=== PATIENT | female | born 1960 | race Caucasian/White ===

== ENCOUNTER 2021-10-03 12:38 | Emergency (ER) | payer OTHER, SELFPAY ==
--- OUTSIDE RECORDS SUMMARY | 2021-10-03 12:42 | XMS REPORT | Continuity of Care Document ---
:1960 Author Organization [facility] t Address [address] [place] [address] [address]. [address] [place] [address] Care Team Providers Name Role Phone Collins Arrington MD Attending Clinician GARTH ARRINGTON Attending Clinician Unavailable Bonita Henning MD Attending Clinician Fritz Patel MD Attending Clinician Payers Payer Name Policy Type Policy Number Effective Date Expiration Date S ource Problems Condition Condition Condition Status Onset Resolution Last Treating Co mments Source Name Details Category Date Date Treatment Clinician Date Senile Senile Disease Active [facility] osteoporos osteoporos 05-13 Co llege is is 00:00: of 00 Medicin e Allergies, Adverse Reactions, Alerts Allergy Allergy Status Severity Reaction(s) Onset Inactive Treating Comm ents Source Name Type Date Date Clinician Buspiron Propensi Active 2019-05 [facility] e Hcl ty to 05-17 [place] adverse 00:00: of reaction 00 Medicin s to e drug Escitalo Propensi Active 2019-05 [facility] pram ty to 05-17 [place] Base adverse 00:00: of reaction 00 Medicin s to e drug Meloxica Propensi Active Nausea Only Upset [facility] m ty to 05-13 stomach [place] adverse 00:00: of reaction 00 Medicin s to e drug Gabapent Propensi Active 2018-05 [facility] in ty to 05-11 College adverse 00:00: of reaction 00 Medicin s to e drug Nifedipi Propensi Active 2018-05 [facility] ne ty to 05-11 [place] adverse 00:00: of reaction 00 Medicin s to e drug Amlodipi Propensi Active Shortness Of difficu lt [facility] ne ty to Breath 9-23 y College adverse 00:00: breathing of reaction 00 Medicin s to e drug Leflunom Propensi Active Rash [facility] claudette ty to 09-25 College adverse 00:00: of reaction 00 Medicin s to e drug Nsaids Propensi Active Other (See "spaces [facility] ty to Comments) 09-25 out" College adverse 00:00: of reaction 00 Medicin s to e drug Sulfa Propensi Active Rash [facility] Antibiot ty to 09-25 College ics adverse 00:00: of reaction 00 Medicin s to e drug Social History Social Habit Start Date Stop Date Quantity Comments Source Exposure to Not sure [facility] SARS-CoV-2 (event) of Med icine Tobacco use and 2020-05-19 2020-05-19 Never used [facility] Co llege exposure 00:00:00 00:00:00 of Medicine Cigarettes smoked 2020-05-19 2020-05-19 [facility] current (pack per 00:00:00 00:00:00 of Medi cine day) - Reported Alcohol intake 2020-05-19 2020-05-19 Ex-drinker [facility] Col lege 00:00:00 00:00:00 (finding) of Medicine History of tobacco 2019-10-30 Smoker [facility] use 00:00:00 of Medicine Tobacco Comment 2019-03-11 2019-03-11 currently vaping [facility] 00:00:00 00:00:00 - 2 of Medicine cartridges/week Sex Ass[birth year] [facility] llege 00:00:00 00:00:00 of Medicine Smoking Status Start Date Stop Date Source Former smoker 2020-05-19 00:00:00 2020-05-19 00:00:00 [facility] ollejennifer of Medicine Current every day 2020-03-17 00:00:00 [facility] lege of smoker Medicine Medications Ordered Filled Start Stop Current Ordering Indication Dosage Frequency Signature Comments Components Source Medication Medication Date Date Medication? Clinician (SIG) Name Name ALBUTEROL Yes Inhale by Rajesh ylor SULFATE IN 1-14 mouth. College 15:14: of 45 Medicin e omeprazole Yes 20mg Take 20 mg [facility] (PRILOSEC) 1-14 by mouth Colle ge 20 MG 15:14: daily. of capsule 45 Medicin e B 0 Yes Take by [facility] Complex-Bio 14 mouth. [place] tomas tin-FA (B 15:14: of COMPLETE) 45 Medicin TABS e aspirin 325 2020-0 Yes 325mg Take 325 [facility] mg tablet 1-14 mg by [place] 15:14: mouth of 45 every 6 Medicin hours as e needed for Pain. Multiple 0 Yes Take by [facility] Vitamin -14 mouth. [place] (MULTI-TARUN 15:14: of MINS OR) 45 Medicin e Calcium 2020-0 Yes daily. [facility] Carbonate-V 05-19 College it D-Min 15:14: of (CALCIUM 45 Medicin 1200) e [id number] MG-UNIT CHEW tramadol-ac 0 Yes [id number] 1{tbl} Take 1 [facility] etaminophen 1-14 Tablet by Col lege (ULTRACET) 00:00: mouth at of 37.5-325 MG 00 bedtime. Medi anson per tablet e ALBUTEROL Yes Inhale by Ba ylor SULFATE IN 11 mouth. [place] 19:45: of 13 Medicin e omeprazole Yes 20mg Take 20 mg [facility] (PRILOSEC) 11 by mouth Colle ge 20 MG 19:45: daily. of capsule 13 Medicin e B 0 Yes Take by [facility] Complex-Bio 11 mouth. [place]by marin tin-FA (B 19:45: of COMPLETE) 13 Medicin TABS e aspirin 325 0 Yes 325mg Take 325 [facility] mg tablet 1-11 mg by [place] 19:45: mouth of 13 every 6 Medicin hours as e needed for Pain. Multiple 0 Yes Take by [facility] Vitamin -11 mouth. [place] (MULTI-TARUN 19:45: of MINS OR) 13 Medicin e Calcium 0 Yes daily. [facility] Carbonate-V 05-16 College it D-Min 19:45: of (CALCIUM 13 Medicin 1200) e [id number] MG-UNIT CHEW predniSONE 0 Yes [id number] TAKE 1 AND [facility] (DELTASONE) 1-05 1/2 College 5 MG tablet 00:00: TABLETS BY of 00 MOUTH Medicin EVERY DAY e predniSONE Yes [id number] TAKE 1 AND [facility] (DELTASONE) 1-05 05/07 [place] 5 MG tablet 00:00: TABLETS BY of 00 MOUTH Medicin EVERY DAY e ALBUTEROL 2019-05 Yes Inhale by Ba ylor SULFATE IN 2-28 mouth. [place] 15:55: of 57 Medicin e omeprazole 2019-05 Yes 20mg Take 20 mg [facility] (PRILOSEC) 2-28 by mouth Colle ge 20 MG 15:55: daily. of capsule 57 Medicin e B 2019-05 Yes Take by [facility] Complex-Bio 2-28 mouth. Colleg e tin-FA (B 15:55: of COMPLETE) 57 Medicin TABS e aspirin 325 2019-05 Yes 325mg Take 325 [facility] mg tablet 2-28 mg by [place] 15:55: mouth of 57 every 6 Medicin hours as e needed for Pain. Multiple 2019-05 Yes Take by [facility] r Vitamin 2-28 mouth. [place] (MULTI-TARUN 15:55: of MINS OR) 57 Medicin e Calcium 2019-05 Yes daily. [facility] Carbonate-V 2- [place] it D-Min 15:55: of (CALCIUM 57 Medicin 1200) e [id number] MG-UNIT CHEW baclofen 2019-05 Yes 10mg Take 1 [facility] (LIORESAL) 2-28 Tablet by Rito ege 10 MG 00:00: mouth 3 of tablet 00 times Medicin daily. e baclofen 2019-05 Yes 10mg Take 1 [facility] (LIORESAL) 2-28 Tablet by Rito ege 10 MG 00:00: mouth 3 of tablet 00 times Medicin daily. e baclofen 2019-05- No 10mg Take 1 [facility] (LIORESAL) 2-28 05-19 Tablet by Col lege 10 MG 00:00: 00:00 mouth 3 of tablet 00 :00 times Medicin daily. e duloxetine 2019-05 Yes 1{capsu Take 1 [facility] (CYMBALTA) 1-22 le} capsule by Col lege 30 MG 00:00: mouth of capsule 00 every Medicin morning. e duloxetine 2019-05 Yes 1{capsu Take 1 [facility] (CYMBALTA) 1-22 le} capsule by Col lege 30 MG 00:00: mouth of capsule 00 every Medicin morning. e duloxetine 2019-05 Yes 1{capsu Take 1 [facility] (CYMBALTA) 1-22 le} capsule by Col lege 30 MG 00:00: mouth of capsule 00 every Medicin morning. e mirtazapine 2019-05 Yes 1{tbl} Take 1 [facility] (REMERON) 1-19 Tablet by Colle ge 15 MG 00:00: mouth of tablet 00 every Medicin evening. e mirtazapine 2019-05 Yes 1{tbl} Take 1 [facility] (REMERON) 1-19 Tablet by Colle ge 15 MG 00:00: mouth of tablet 00 every Medicin evening. e mirtazapine 2019-05 Yes 1{tbl} Take 1 [facility] (REMERON) 1-19 Tablet by Colle ge 15 MG 00:00: mouth of tablet 00 every Medicin evening. e ALBUTEROL 2019-05 Yes Inhale by Ba ylor SULFATE IN 1-12 mouth. [place] 13:56: of 28 Medicin e omeprazole 2019-05 Yes 20mg Take 20 mg [facility] (PRILOSEC) -12 by mouth Colle ge 20 MG 13:56: daily. of capsule 28 Medicin e B 2019-05 Yes Take by [facility] ([facility] 13:56: of COMPLETE) 28 Medicin TABS e aspirin 325 2019-05 Yes 325mg Take 325 [facility] mg tablet 1-12 mg by [place] 13:56: mouth of 28 every 6 Medicin hours as e needed for Pain. Multiple 2019-05 Yes Take by [facility] r Vitamin 1-12 mouth. [place] (MULTI-TARUN 13:56: of MINS OR) 28 Medicin e escitalopra 2019-05 2020- No 20mg Take 20 mg [facility] m (LEXAPRO) 1-12 11-12 by mouth Col lege 20 MG 13:56: 00:00 daily. of tablet 18 :00 Medicin e hydroxychlo 2019-05 Yes [id number] 200mg Take 1 [facility] roquine 1-12 Tablet by [place] (PLAQUENIL) 00:00: mouth of 200 MG 00 daily. Medicin tablet e amlodipine 2019-05 Yes [id number] 2.5mg Take 1 [facility] (NORVASC) 1-12 Tablet by Colle ge 2.5 MG 00:00: mouth of tablet 00 daily. Medicin e hydroxychlo 2020- Yes [id number] 200mg Take 1 [facility] roquine 1-12 Tablet by [place] (PLAQUENIL) 00:00: mouth of 200 MG 00 daily. Medicin tablet e tramadol-ac 2019- Yes [id number] 1{tbl} Take 1 [facility] etaminophen 1-12 Tablet by Col lege (ULTRACET) 00:00: mouth at of 37.5-325 MG 00 bedtime. Medi anson per tablet e predniSONE 2019- Yes [id number] 7.5mg Take 1.5 [facility] (DELTASONE) 1-12 Tablets by Co llege 5 MG tablet 00:00: mouth of 00 daily. Medicin e amlodipine 2019- Yes [id number] 2.5mg Take 1 [facility] (NORVASC) 1-12 Tablet by Colle ge 2.5 MG 00:00: mouth of tablet 00 daily. Medicin e hydroxychlo 2019- Yes [id number] 200mg Take 1 [facility] roquine 1-12 Tablet by [place] (PLAQUENIL) 00:00: mouth of 200 MG 00 daily. Medicin tablet e tramadol-ac 2019- Yes [id number] 1{tbl} Take 1 [facility] etaminophen 1-12 Tablet by Col lege (ULTRACET) 00:00: mouth at of 37.5-325 MG 00 bedtime. Medi anson per tablet e predniSONE 2019-05 Yes [id number] 7.5mg Take 1.5 [facility] (DELTASONE) 1-12 Tablets by Co llege 5 MG tablet 00:00: mouth of 00 daily. Medicin e amlodipine 2019- Yes [id number] 2.5mg Take 1 [place] (NORVASC) 1-12 Tablet by Colle ge 2.5 MG 00:00: mouth of tablet 00 daily. Medicin e hydroxychlo 2019- Yes [id number] 200mg Take 1 [facility] roquine 1-12 Tablet by [place] (PLAQUENIL) 00:00: mouth of 200 MG 00 daily. Medicin tablet e tramadol-ac 2019- Yes [id number] 1{tbl} Take 1 [facility] etaminophen 1-12 Tablet by Col lege (ULTRACET) 00:00: mouth at of 37.5-325 MG 00 bedtime. Medi anson per tablet e amlodipine 2019-05 Yes [id number] 2.5mg Take 1 [facility] (NORVASC) 1-12 Tablet by Colle ge 2.5 MG 00:00: mouth of tablet 00 daily. Medicin e tramadol-ac 2019-05 No [id number] 1{tbl} Take 1 [facility] etaminophen 1-12 -14 Tablet by Co llege (ULTRACET) 00:00: 00:00 mouth at of 37.5-325 MG 00 :00 bedtime. Medi anson per tablet e predniSONE 2019-05 No 7.5mg Take 1.5 [facility] (DELTASONE) -09 11-12 Tablets by C ollege 5 MG tablet 00:00: 00:00 mouth of 00 :00 daily. Medicin e baclofen 2019-05 Yes 10mg Take 10 mg [place] [facility] (LIORESAL) 0-17 by mouth. [facility]ito e[facility] 10 MG 00:00: of tablet 00 Medicin e baclofen 2019-05 Yes 10mg Take 10 mg [place] [facility] (LIORESAL) 0-17 by mouth. [facility]ito ege 10 MG 00:00: of tablet 00 Medicin e baclofen 2019-05 Yes 10mg Take 10 mg [place] [facility] (LIORESAL) 0-17 by mouth. [facility]ito ege 10 MG 00:00: of tablet 00 Medicin e baclofen 2019-05 Yes 10mg Take 10 mg [place] che[facility]ie (LIORESAL) 0-17 by mouth. [facility]ito e[facility] 10 MG 00:00: of tablet 00 Medicin e trazodone 2019-05 Yes 1{tbl} Take 1 [facility] (DESYREL) 0-14 Tablet by Colle ge 100 MG 00:00: mouth of tablet 00 daily. Medicin e trazodone 2019-05 Yes 1{tbl} Take 1 [facility] or (DESYREL) 0-14 Tablet by Colle ge 100 MG 00:00: mouth of tablet 00 daily. Medicin e trazodone 2019-05- No 1{tbl} Take 1 [place] che[facility]ie (DESYREL) 0-14 01-14 Tablet by Rito ege 100 MG 00:00: 00:00 mouth of tablet 00 :00 daily. Medicin e TRELEGY Yes INHALE 1 [facility] ELLIPTA 9-18 PUFF BY [place] [id number] 00:00: MOUTH of MCG/INH 00 DAILY Medicin AEPB e TRELEGY 2020-0 Yes INHALE 1 [facility] ELLIPTA 9-18 PUFF BY [place] [address].5 00:00: MOUTH of MCG/INH 00 DAILY Medicin AEPB e TRELEGY 2020-0 Yes INHALE 1 [facility] ELLIPTA 9-18 PUFF BY [place] [id number] 00:00: MOUTH of MCG/INH 00 DAILY Medicin AEPB e TRELEGY 2020-0 Yes INHALE 1 [facility] ELLIPTA 9-18 PUFF BY [place] [address].5 00:00: MOUTH of MCG/INH 00 DAILY Medicin AEPB e ALBUTEROL 2020-0 Yes Inhale by Ba ylor SULFATE IN 5-19 mouth. [place] 13:35: of 14 Medicin e omeprazole 2020-0 Yes 20mg Take 20 mg [facility] (PRILOSEC) 5-19 by mouth Colle ge 20 MG 13:35: daily. of capsule 14 Medicin e escitalopra 2020-0 Yes 20mg Take 20 mg [facility] m (LEXAPRO) 5-19 by mouth Rito ege 20 MG 13:35: daily. of tablet 14 Medicin e B 2020-0 Yes Take by [facility] Complex-Bio 5-19 mouth. [place] e tin-FA (B 13:35: of COMPLETE) 14 Medicin TABS e aspirin 325 2020-0 Yes 325mg Take 325 [facility] mg tablet 5-19 mg by [place] 13:35: mouth of 14 every 6 Medicin hours as e needed for Pain. Multiple 2020-0 Yes Take by [facility]ello r Vitamin 5-19 mouth. [place] (MULTI-TARUN 13:35: of MINS OR) 14 Medicin e tramadol-ac 2020-0 Yes [id number] 1{tbl} Take 1 Tab [facility] etaminophen 5-19 by mouth [facility] (ULTRACET) 00:00: at of 37.5-325 MG 00 bedtime. Medi anson per tablet e tramadol-ac 2020-0 2020- No [id number] 1{tbl} Take 1 Tab [facility] etaminophen 5-19 11-12 by mouth Col lege (ULTRACET) 00:00: 00:00 at of 37.5-325 MG 00 :00 bedtime. Medi anson per tablet e predniSONE Yes TAKE 1 AND [facility] (DELTASONE) 5-04 /2 College 5 MG tablet 00:00: TABLETS BY of 00 MOUTH Medicin DAILY e Fluticasone Yes 1{puff} Inhale 1 [facility] -Umeclidin- 3-23 Puff by Colle ge [facility] 00:00: mouth of (TRELEGY 00 daily. Medicin ELLIPTA) e 100-62.5-25 MCG/INH AEPB tramadol-ac 2020- No [id number] 1{tbl} Take 1 Tab [facility] etaminophen 08 05-19 by mouth Col lege (ULTRACET) 00:00: 00:00 at of 37.5-325 MG 00 :00 bedtime. Medi anson per tablet e ALBUTEROL 2018-05 Yes Inhale by Rajesh ylor SULFATE IN 1-06 mouth. [place] 17:10: of 53 Medicin e omeprazole 2018-05 Yes 20mg Take 20 mg [facility] (PRILOSEC) 1-06 by mouth [place]illa ge 20 MG 17:10: daily. of capsule 53 Medicin e predniSONE 2018-05 Yes 10mg Take 10 mg [facility] (DELTASONE) 1-06 by mouth Rito ege 10 MG 17:10: daily. of tablet 53 Medicin e escitalopra 2018-05 Yes 20mg Take 20 mg [facility] m (LEXAPRO) 06 by mouth Rito ege 20 MG 17:10: daily. of tablet 53 Medicin e B 2018-05 Yes Take by [facility] Complex-Bio 1-06 mouth. [place]by marin tin-FA (B 17:10: of COMPLETE) 53 Medicin TABS e aspirin 325 2018-05 Yes 325mg Take 325 [facility] mg tablet 1-06 mg by [place] 17:10: mouth of 53 every 6 Medicin hours as e needed for Pain. Multiple 2018-05 Yes Take by [facility] r Vitamin 1-06 mouth. [place] (MULTI-TARUN 17:10: of MINS OR) 53 Medicin e Fluticasone 2018-05 Yes by [facility] -Umeclidin- 1-06 Inhalation Co llege [facility] 17:10: route. of (TRELEGY 53 Medicin ELLIPTA IN) e MELOXICAM 2018-05 2019- No Take by [place] [facility]ie OR [id number] mouth as College 17:10: 00:00 needed. of 28 :00 Medicin e busPIRone 2018-05 Yes TAKE 1 [facility] (BUSPAR) 10 0-23 TABLET BY Col lege MG tablet 00:00: MOUTH of 00 TWICE A Medicin DAY e busPIRone 2018-05 Yes TAKE 1 [facility] (BUSPAR) 10 0-23 TABLET BY Col lege MG tablet 00:00: MOUTH of 00 TWICE A Medicin DAY e busPIRone 2018-05 2020- No TAKE 1 [facility] (BUSPAR) 10 0-23 11-12 TABLET BY Co llege MG tablet 00:00: 00:00 MOUTH of 00 :00 TWICE A Medicin DAY e Fluticasone Yes by [facility] -Umeclidin- 01-26 Inhalation Co llege [facility] 15:01: route. of (TRELEGY 11 Medicin ELLIPTA IN) e ALBUTEROL Yes Inhale by Ba ylor SULFATE IN 01-26 mouth. [place] 14:58: of 00 Medicin e omeprazole Yes 20mg Take 20 mg [facility] (PRILOSEC) 01-26 by mouth Colle ge 20 MG 14:58: daily. of capsule 00 Medicin e predniSONE Yes 10mg Take 10 mg [facility] (DELTASONE) 01-26 by mouth Rito ege 10 MG 14:58: daily. of tablet 00 Medicin e MELOXICAM Yes Take by [facility] or OR 01-26 mouth as [place] 14:58: needed. of 00 Medicin e escitalopra Yes 20mg Take 20 mg [facility] m (LEXAPRO) 01-26 by mouth [facility]ito ege 20 MG 14:58: daily. of tablet 00 Medicin e B Yes Take by [facility] Complex-Bio 01-26 mouth. Colleg tomas tin-FA (B 14:58: of COMPLETE) 00 Medicin TABS e aspirin 325 2018- Yes 325mg Take 325 [facility] mg tablet - mg by [place] 14:58: mouth of 00 every 6 Medicin hours as e needed for Pain. Multiple Yes Take by [place] r Vitamin - mouth. [place] (MULTI-TARUN 14:58: of MINS OR) 00 Medicin e gabapentin Yes [id number] 100mg Take 1 Cap [facility] (NEURONTIN) 9-23 by mouth [facility] e[facility] 100 MG 00:00: at of capsule 00 bedtime. Medicin e tramadol-ac Yes [id number] 1{tbl} Take 1 Tab [facility] etaminophen 9-23 by mouth [facility] (ULTRACET) 00:00: at of 37.5-325 MG 00 bedtime. Medi anson per tablet e meloxicam Yes [id number] 15mg Take 1 Tab [facility] (MOBIC) 15 9-23 by mouth Colle ge MG tablet 00:00: daily. of 00 Medicin e NIFEdipine Yes 30mg Take 1 Tab [facility] (ADALAT CC) 9-23 by mouth [facility]ito e[facility] 30 MG CR 00:00: daily. of tablet 00 Medicin e gabapentin Yes [id number] 100mg Take 1 Cap [facility] (NEURONTIN) 9-23 by mouth [facility]ito ege 100 MG 00:00: at of capsule 00 bedtime. Medicin e tramadol-ac Yes [id number] 1{tbl} Take 1 Tab [facility] etaminophen 9-23 by mouth [facility] e[facility] (ULTRACET) 00:00: at of 37.5-325 MG 00 bedtime. Medi anson per tablet e meloxicam Yes [id number] 15mg Take 1 Tab [facility] (MOBIC) 15 9-23 by mouth Colle ge MG tablet 00:00: daily. of 00 Medicin e NIFEdipine Yes 30mg Take 1 Tab [facility] (ADALAT CC) 9-23 by mouth Rito ege 30 MG CR 00:00: daily. of tablet 00 Medicin e amlodipine 2019- No 2.5mg Take 1 Tab [facility] (NORVASC) -26 01- by mouth Colle ge 2.5 MG 00:00: 00:00 daily. of tablet 00 :00 Medicin e tramadol-ac 2019- No 1{tbl} Take 1 Tab [facility] etaminophen -26 01- by mouth Col lege (ULTRACET) 00:00: 00:00 at of 37.5-325 MG 00 :00 bedtime. Medi anson per tablet e Immunizations Ordered Immunization Filled Immunization Date Status Commen ts Source Name Name Influenza Quad-PF 2020-02-10 Completed [facility] 00:00:00 of Medicine Influenza Quad-PF 2020-02-10 Completed [facility] 00:00:00 of Medicine Influenza Quad-PF 2020-02-10 Completed [facility] 00:00:00 of Medicine Influenza Quad-PF 2020-02-10 Completed [facility] 00:00:00 of Medicine Influenza Quad-PF 2019-05-11 Completed [facility] 00:00:00 of Medicine Influenza Quad-PF 2019-05-11 Completed [facility] 00:00:00 of Medicine Influenza Quad-PF 2019-05-11 Completed [facility] 00:00:00 of Medicine Influenza Quad-PF 2019-05-11 Completed [facility] 00:00:00 of Medicine Influenza Quad-PF 2019-05-11 Completed [facility] 00:00:00 of Medicine Influenza Quad-PF 2019-01-15 Completed [facility] 00:00:00 of Medicine Vital Signs Vital Name Observation Time Observation Value Comments Source Systolic blood 2020-05-19 15:14:00 124 mm[Hg] [facility] pressure Medicine Diastolic blood 2020-05-19 15:14:00 82 mm[Hg] [facility] Medicine Heart rate 2020-05-19 15:14:00 105 /min [facility] Body temperature 2020-05-19 15:14:00 35.89 Karly [facility] Respiratory rate 2020-05-19 15:14:00 17 /min [facility] Body height 2020-05-19 15:14:00 175.3 cm [facility] Body weight 2020-05-19 15:14:00 83.462 kg [facility] BMI 2020-05-19 15:14:00 27.17 kg/m2 [facility] Oxygen saturation in 2020-05-19 15:14:00 91 /min [facility] Arterial blood by [facility] Pulse oximetry Body temperature 2020-05-16 19:43:00 36.78 Karly [facility] Body height 2020-05-16 19:43:00 175.3 cm [facility] Body weight 2020-05-16 19:43:00 83.643 kg [facility] ollege of Medicine BMI 2020-05-16 19:43:00 27.23 kg/m2 [facility] ollege of Medicine Systolic blood 2020-05-02 15:48:00 105 mm[Hg] [facility] of pressure Medicine Diastolic blood 2020-05-02 15:48:00 71 mm[Hg] [facility] Medicine Heart rate 2020-05-02 15:48:00 61 /min [facility] ol[facility] of Medicine Body temperature 2020-05-02 15:48:00 35.67 Karly [facility] Respiratory rate 2020-05-02 15:48:00 16 /min [facility] Body height 2020-05-02 15:48:00 175.3 cm [facility] ollege of [facility] Body weight 2020-05-02 15:48:00 82.328 kg [facility] ollege of [facility] BMI 2020-05-02 15:48:00 26.80 kg/m2 [facility] ollege of [facility] Systolic blood 2020-03-17 13:52:00 129 mm[Hg] [facility] pressure Medicine Diastolic blood 2020-03-17 13:52:00 84 mm[Hg] [facility] Medicine Heart rate 2020-03-17 13:52:00 102 /min [facility] ollege of [facility] Respiratory rate 2020-03-17 13:52:00 17 /min [facility] Body height 2020-03-17 13:52:00 175.3 cm [facility] ollege of [facility] Body weight 2020-03-17 13:52:00 [facility] BMI 2020-03-17 13:52:00 26.73 kg[facility]m2 [facility] Oxygen saturation in 2020-03-17 13:52:00 93 /min [facility] Arterial blood by [facility] Pulse oximetry Systolic blood 2019-09-22 13:31:00 101 mm[Hg] [facility] of pressure Medicine Diastolic blood 2019-09-22 13:31:00 69 mm[Hg] [facility] pressure Medicine Heart rate 2019-09-22 13:31:00 95 /min [facility] ol[facility] of Medicine Body temperature 2019-09-22 13:31:00 36.94 Karly [facility] Respiratory rate 2019-09-22 13:31:00 16 /min [facility] Body height 2019-09-22 13:31:00 175.3 cm [facility] ollege of [facility] Body weight 2019-09-22 13:31:00 79.198 [facility] BMI 2019-09-22 13:31:00 25.78 [facility]2 [facility] saturation in 2019-09-22 13:31:00 88 /min [facility] Arterial blood by [facility] Pulse oximetry Systolic blood 2019-03-11 17:09:00 114 mm[Hg] [facility] pressure Medicine Diastolic blood 2019-03-11 17:09:00 83 mm[Hg] [facility] of pressure Medicine Heart rate 2019-03-11 17:09:00 86 /min [facility] Body temperature 2019-03-11 17:09:00 37.22 Karly [facility] Respiratory rate 2019-03-11 17:09:00 16 /min [facility] Body height 2019-03-11 17:09:00 175.3 cm [facility] Body weight 2019-03-11 17:09:00 72.576 kg [facility] BMI 2019-03-11 17:09:00 23.63 kg/m2 [facility] Systolic blood 2019-01-26 14:58:00 114 mm[Hg] [facility] pressure Medicine Diastolic blood 2019-01-26 14:58:00 75 mm[Hg] [facility] pressure Medicine Heart rate 2019-01-26 14:58:00 86 /min [facility] ollege of [facility] Body temperature 2019-01-26 14:58:00 36.94 Karly [facility] Respiratory rate 2019-01-26 14:58:00 17 /min [facility] Body height 2019-01-26 14:58:00 175.3 cm [facility] ollege of [facility] [facility] Body weight 2019-01-26 14:58:00 70.58 kg [facility] ollege of Medicine BMI 2019-01-26 14:58:00 22.98 kg/m2 [facility] Oxygen saturation in 2019-01-26 14:58:00 93 /min [facility] Arterial blood by [facility] Pulse oximetry Procedures This patient has no known procedures. Plan of Care Planned Activity Planned Date Details Comments Source Future Scheduled ALDOLASE [code = Ordered: [facility] Test 1761-6] 09/22/2019 of [facility] Future Scheduled CK [code = 2157-6] Ordered: [facility] Test 09/22/2019 of [facility] Future Scheduled COMPREHENSIVE Ordered: [facility] Col [employer]ge Test METABOLIC PANEL [code 09/22/2019 of Med icine = 23255-0] Future Scheduled C-REACTIVE PROTEIN Ordered: [facility] Test [code = 1988-5] 09/22/2019 of Medicine Future Scheduled CBC W/AUTO DIFF WITH Ordered: [facility] Test PLATELETS [code = 09/22/2019 of Medicin e 11447-8] Future Scheduled SEDIMENTATION RATE Ordered: [facility] [place] Test MODIFIED WESTERGREN 09/22/2019 of Medic ine [code = 4537-7] Future Scheduled COMPLEMENT C3 AND C4 Ordered: [facility] Test [code = NOCPT] 09/22/2019 of Medicine Future Scheduled DNA (DS) ANTIBODY, Ordered: [facility] [place] Test CRITHIDIA IFA W/RX 09/22/2019 of Medici ne TITER [code = 6457-6] Future Scheduled URINALYSIS, COMPLETE Ordered: [facility] Test W/REFLEX TO CULTURE 09/22/2019 of Medic ine [code = 29587-8] Future Scheduled RANDOM URINE Ordered: [facility] Rito [employer]ge Test PROTEIN/CREATININE 09/22/2019 of Medici ne [code = 2890-2] Future Scheduled VITAMIN D 25 HYDROXY Ordered: [facility] Test [code = 1989-3] 09/22/2019 of Medicine Future Scheduled COLON CANCER [facility] Rito [facility]ge Test SCREENING: COLONOSCOPY of Me von [code = COLON CANCER SCREENING: COLONOSCOPY] Future Scheduled MAMMOGRAM ANNUAL [code B [facility] Test = MAMMOGRAM ANNUAL] of Medic ine Future Scheduled TETANUS SHOT (ADULT) [facility] Test [code = TETANUS SHOT of Medi cine (ADULT)] Future Scheduled [facility] = [facility] of Medic ine SCREENING] Future Scheduled HIV SCREENING [code = [employer] [facility] HIV SCREENING] of Medicine Future Scheduled [facility] SCREENING 3 YEAR of Medicine FOLLOW UP [code = CERVICAL CANCER SCREENING 3 YEAR FOLLOW UP] Future Scheduled FLU VACCINE > 6 MONTHS [facility] Test [code = FLU VACCINE > of Med icine 6 MONTHS] Future Scheduled ALDOLASE [code = Ordered: [facility] College Test 1761-6] 03/17/2020 of Medicine Future Scheduled CK [code = 2157-6] Ordered: [employer] Test 03/17/2020 of Medicine Future Scheduled COMPREHENSIVE Ordered: [facility] Col [facility]ge Test METABOLIC PANEL [code 03/17/2020 of Med icine = 82940-3] Future Scheduled C-REACTIVE PROTEIN Ordered: [employer] Test [code = 1988-5] 03/17/2020 of Medicine Future Scheduled COMPLEMENT C3 AND C4 Ordered: [employer] Test [code = NOCPT] 03/17/2020 of Medicine Future Scheduled SEDIMENTATION RATE Ordered: [facility] [employer] Test MODIFIED WESTERGREN 03/17/2020 of Medic ine [code = 4537-7] Future Scheduled CBC W/AUTO DIFF WITH Ordered: [facility] Test PLATELETS [code = 03/17/2020 of Medicin e 28342-5] Future Scheduled VITAMIN D 25 HYDROXY Ordered: [employer] Test [code = 1989-3] 03/17/2020 of Medicine Future Scheduled VITAMIN B12 [code = Ordered: [facility] College Test 2132-9] 03/17/2020 of Medicine Future Scheduled URINALYSIS, COMPLETE Ordered: [facility] College Test W/REFLEX TO CULTURE 03/17/2020 of Medic ine [code = 21729-3] Future Scheduled COLON CANCER [facility] Rito [facility] Test SCREENING: COLONOSCOPY of Me dicine [code = COLON CANCER SCREENING: COLONOSCOPY] Future Scheduled MAMMOGRAM ANNUAL [code B [facility] College Test = MAMMOGRAM ANNUAL] of Medic ine Future Scheduled TETANUS SHOT (ADULT) [employer] Test [code = TETANUS SHOT of Medi cine (ADULT)] Future Scheduled BMI FOLLOW UP PLAN [employer] Test [code = BMI FOLLOW UP of Med icine PLAN] Future Scheduled HEPATITIS C SCREENING [employer] Test [code = HEPATITIS C of Medic ine SCREENING] Future Scheduled HIV SCREENING [code = [employer] Test HIV SCREENING] of Medicine Future Scheduled CERVICAL CANCER [facility] C [facility]lege Test SCREENING 3 YEAR of Medicine FOLLOW UP [code = CERVICAL CANCER SCREENING 3 YEAR FOLLOW UP] Future Scheduled ZOSTER VACCINE (1 of [employer] Test 2) [code = ZOSTER of Medicin e VACCINE (1 of 2)] Future Scheduled COLON CANCER [facility] R[facility] Test SCREENING: COLONOSCOPY of Me dicine [code = COLON CANCER SCREENING: COLONOSCOPY] Future Scheduled [facility] of Medic ine Future Scheduled TETANUS SHOT (ADULT) [employer] Test [code = TETANUS SHOT of Medi cine (ADULT)] Future Scheduled BMI FOLLOW UP PLAN [employer] Test [code = BMI FOLLOW UP of Med icine PLAN] Future Scheduled HEPATITIS C SCREENING [employer] Test [code = HEPATITIS C of Medic ine SCREENING] Future Scheduled HIV SCREENING [code = [employer] Test HIV SCREENING] of Medicine Future Scheduled CERVICAL CANCER [facility] C [facility] Test SCREENING 3 YEAR of Medicine FOLLOW UP [code = CERVICAL CANCER SCREENING 3 YEAR FOLLOW UP] Future Scheduled ZOSTER VACCINE (1 of [employer] Test 2) [code = ZOSTER of Medicin e VACCINE (1 of 2)] Future Scheduled COLON CANCER [facility] R[facility] Test SCREENING: COLONOSCOPY of Me dicine [code = COLON CANCER SCREENING: COLONOSCOPY] Future Scheduled COVID-19 Vaccine [facility] Test Evaluation [code = of Medici ne COVID-19 Vaccine Evaluation] Future Scheduled MAMMOGRAM ANNUAL [facility] = [facility] ANNUAL] of Medic ine Future Scheduled TETANUS SHOT (ADULT) [employer] Test [code = TETANUS SHOT of Medi cine (ADULT)] Future Scheduled BMI FOLLOW UP PLAN [employer] Test [code = BMI FOLLOW UP of Med icine PLAN] Future Scheduled HEPATITIS C SCREENING [employer] Test [code = HEPATITIS C of Medic ine SCREENING] Future Scheduled HIV SCREENING [code = [employer] Test HIV SCREENING] of Medicine Future Scheduled CERVICAL CANCER [facility] C [facility]lege Test SCREENING 3 YEAR of Medicine FOLLOW UP [code = CERVICAL CANCER SCREENING 3 YEAR FOLLOW UP] Future Scheduled ZOSTER VACCINE (1 of [employer] Test 2) [code = ZOSTER of Medicin e VACCINE (1 of 2)] Future Scheduled CK [code = 2157-6] Ordered: [employer] Test 05/19/2020 of Medicine Future Scheduled ALDOLASE [code = Ordered: [facility] College Test 1761-6] 05/19/2020 of Medicine Future Scheduled COMPREHENSIVE Ordered: [facility] Test METABOLIC PANEL [code 05/19/2020 of Med icine = 24060-4] Future Scheduled C-REACTIVE PROTEIN Ordered: [employer] Test [code = 1988-5] 05/19/2020 of Medicine Future Scheduled COMPLEMENT C3 AND C4 Ordered: [employer] Test [code = NOCPT] 05/19/2020 of Medicine Future Scheduled CBC W/AUTO DIFF WITH Ordered: [employer] Test PLATELETS [code = 05/19/2020 of Medicin e 47839-5] Future Scheduled SEDIMENTATION RATE Ordered: [employer] Test MODIFIED ERG05/19/2020 of Medic ine [code = 4537-7] Future Scheduled COLON CANCER [facility] R[facility] Test SCREENING: COLONOSCOPY of Me longoria [code = COLON CANCER SCREENING: COLONOSCOPY] Future Scheduled COVID-19 Vaccine [facility] Test Evaluation [code = of Medici ne COVID-19 Vaccine Evaluation] Future Scheduled MAMMOGRAM ANNUAL [code B [facility] Test = MAMMOGRAM ANNUAL] of Medic ine Future Scheduled TETANUS SHOT (ADULT) [employer] Test [code = TETANUS SHOT of Medi cine (ADULT)] Future Scheduled BMI FOLLOW UP PLAN [employer] Test [code = BMI FOLLOW UP of Med icine PLAN] Future Scheduled HEPATITIS C SCREENING [employer] Test [code = HEPATITIS C of Medic ine SCREENING] Future Scheduled HIV SCREENING [code = [employer] Test HIV SCREENING] of Medicine Future Scheduled CERVICAL CANCER [facility] C [facility]lege Test SCREENING 3 YEAR of Medicine FOLLOW UP [code = CERVICAL CANCER SCREENING 3 YEAR FOLLOW UP] Future Scheduled ZOSTER VACCINE (1 of [employer] Test 2) [code = ZOSTER of Medicin e VACCINE (1 of 2)] Future Scheduled CBC W/AUTO DIFF WITH Ordered: [employer] Test PLATELETS [code = 01/26/2019 of Medicin e 08206-5] Future Scheduled SEDIMENTATION RATE Ordered: [employer] Test MODIFIED 01/26/2019 of Medic ine [code = 4537-7] Future Scheduled COMPREHENSIVE Ordered: [facility] Test METABOLIC PANEL [code 01/26/2019 of Med icine = 25488-3] Future Scheduled C-REACTIVE PROTEIN Ordered: [employer] Test [code = 1987-] 01/26/2019 of Medicine Future Scheduled COMPLEMENT C3 AND C4 Ordered: [employer] Test [code = NOCPT] 01/26/2019 of Medicine Future Scheduled CK [code = 2157-6] Ordered: [employer] Test 01/26/2019 of Medicine Future Scheduled ALDOLASE [code = Ordered: [facility] Test 1761-6] 01/26/2019 of Medicine Future Scheduled COLON CANCER [facility] Test SCREENING: COLONOSCOPY of Me dicine [code = COLON CANCER SCREENING: COLONOSCOPY] Future Scheduled MAMMOGRAM ANNUAL [code [employer] Test = MAMMOGRAM ANNUAL] of Medic ine Future Scheduled TETANUS SHOT (ADULT) [employer] Test [code = TETANUS SHOT of Medi cine (ADULT)] Future Scheduled HEPATITIS C SCREENING [employer] Test [code = HEPATITIS C of Medic ine SCREENING] Future Scheduled HIV SCREENING [code = [employer] [facility] HIV SCREENING] of Medicine Future Scheduled CERVICAL CANCER [facility] C [facility]lege Test SCREENING 3 YEAR of Medicine FOLLOW UP [code = CERVICAL CANCER SCREENING 3 YEAR FOLLOW UP] Future Scheduled FLU VACCINE > 6 MONTHS [employer] Test [code = FLU VACCINE > of Med icine 6 MONTHS] Future Scheduled COLON CANCER [facility] [employer] Test SCREENING: COLONOSCOPY of dicine [code = COLON CANCER SCREENING: COLONOSCOPY] Future Scheduled MAMMOGRAM ANNUAL [code [facility] = MAMMOGRAM ANNUAL] of Medic ine Future Scheduled TETANUS SHOT (ADULT) [employer] Test [code = TETANUS SHOT of Medi cine (ADULT)] Future Scheduled HEPATITIS C SCREENING [employer] Test [code = HEPATITIS C of Medic ine SCREENING] Future Scheduled HIV SCREENING [code = [employer] Test HIV SCREENING] of Medicine Future Scheduled CERVICAL CANCER [facility] C [employer] Test SCREENING 3 YEAR of Medicine FOLLOW UP [code = CERVICAL CANCER SCREENING 3 YEAR FOLLOW UP] Future Scheduled FLU VACCINE > 6 MONTHS [employer] Test [code = FLU VACCINE > of Med icine 6 MONTHS] Future Scheduled FL ESOPHAGRAM COMPLETE 1 Occurrences [facility] College Test [code = 36794-8] starting of Medicine 05/16/2020 until 11/13/2021 Future Scheduled COMPLETE PFT WITH 1 Occurrences [employer] Test BRONCHODILATOR [code = starting of Me dicine 37774] 05/02/2020 until 05/02/2021 Future Scheduled SIX MINUTE WALK TEST 1 Occurrences [employer] Test [code = 42177] starting of Medicine 05/02/2020 until 05/02/2021 Future Scheduled DEXA BONE DENSITY 1 Occurrences [employer] Test SPINE AND HIP [code = starting of Med icine 52495] 03/17/2020 until 03/17/2021 Future Scheduled IMPEDANCE PH [code = 1 Occurrences [employer] Test NOCPT] starting of Medicine 05/16/2020 until 11/13/2020 Future Scheduled ESOPHAGEAL 1 Occurrences [facility] [employer] Test MANOMETRY/MOTILITY starting of Medici ne [code = NOCPT] 05/16/2020 until 11/13/2020 Future Scheduled NOVEL 2019 1 Occurrences [facility] Col [facility]ge Test CORONAVIRUS(COVID-19), starting of Me dicine SUNSHINE [code = U0004] 05/02/2020 until 2020 Future Scheduled SIX MINUTE WALK TEST 1 Occurrences [employer] Test [code = 80003] starting of Medicine 03/11/2019 until 03/11/2020 Future Scheduled COMPLETE PFT WITH 1 Occurrences [employer] Test BRONCHODILATOR [code = starting of Me dicine 97591] 03/11/2019 until 03/11/2020 Future Scheduled DEXA BONE DENSITY 1 Occurrences [employer] Test SPINE AND HIP [code starting of Me dicine = 92010] 01/26/2019 until 01/26/[address] CHEST WO CONTRAST 1 Occurrences [employer] Test [code = 25573-0] starting of Medicine 03/11/2019 until 10/10/2019 Encounters Start End Encounter Admission Attending Care Care Encounter Source Date/Time Date/Time Type Type Clinicians Facility Department ID 2020-05-19 2020-05-19 Office NAILA Arrington [id number] [facility] 09:08:54 09:52:58 Visit Jory Guadalupe AMBULATOR [id number] College Y [id number] of [id number] Medi anson 370 e 2020-05-19 2020-05-19 Outpatient EVANGELISTA ARRINGTON [facility] SLE [id number] [facility] 00:00:00 00:00:00 JORY 2020-05-16 2020-05-16 Office NAILA Henning [id number] [facility] 13:41:05 14:01:05 Visit Sunlily K AMBULATOR [id number] College Y [id number] of [id number] Medi anson 325 e 2020-05-02 2020-05-02 Office NAILA Patel [id number] [facility] 09:33:32 10:58:42 Visit Gregorio AMBULATOR [id number] College Fritz Y [id number] of [id number] Medi anson 315 e 2020-03-17 2020-03-17 Office NAILA Arrington [id number] [facility] 07:43:04 08:38:29 Visit Jory M AMBULATOR [id number] College Y [id number] of [id number] Medi anson 370 e 2019-09-22 2019-09-22 Office NAILA Arrington [id number] [facility] 08:20:56 09:05:36 Visit Jory M AMBULATOR [id number] College Y [id number] of [id number] Medi anson 370 e 2019-03-11 2019-03-11 Office NAILA Patel [id number] [facility] 10:44:03 11:56:23 Visit Gregorio AMBULATOR [id number] College Fritz Y [id number] of [id number] Medi anson 315 e 2019-01-26 2019-01-26 Office NAILA Arrington [id number] [facility] 09:42:20 11:19:30 Visit Jory Guadalupe AMBULATOR [id number] College Y [id number] of [id number] Medi anson 370 e Results This patient has no known results.
--- NOTE | 2021-10-03 14:09 | RAD REPORT ---
EXAM DESCRIPTION: RAD - Humerus Right - 10/03/2021 1:34 pm CLINICAL HISTORY: PAIN COMPARISON: No comparisons FINDINGS: Impacted fracture is present of the proximal right humerus. No dislocation evident.
--- NOTE | 2021-10-03 14:11 | RAD REPORT ---
EXAM DESCRIPTION: RAD - Ribs Bilateral W/Chest - 10/03/2021 1:34 pm CLINICAL HISTORY: BLUNT CHEST TRAUMA COMPARISON: Chest Pa And Lat (2 Views) dated 09/17/2018 FINDINGS: Mild diffuse osteopenia is seen. No displaced fracture is seen.
--- NOTE | 2021-10-03 14:45 | ER ---
Nurse's Notes [facility] Name: Iona Hager Age: 60 yrs Sex: Female : 1960 Arrival Date: 10/03/2021 Time: 12:40 Bed 12 Private MD: Jed Patiño Diagnosis: Contusion of right ribs;Contusion of right upper arm;Fall on same level, unspecified;Fracture of upper end of humerus Presentation: 10/03 12:54 Chief complaint: Patient states: Fell on Saturday - I am having right arm/right rib pain. ld1 Denies hitting head, No LOC. No blood thinners. Coronavirus screen: At this time, the client does not indicate any symptoms associated with coronavirus-19. Ebola Screen: No symptoms or risks identified at this time. Initial Sepsis Screen: Does the patient meet any 2 criteria? No. Patient's initial sepsis screen is negative. Does the patient have a suspected source of infection? No. Patient's initial sepsis screen is negative. Risk Assessment: Do you want to hurt yourself or someone else? Patient reports no desire to harm self or others. Onset of symptoms. Onset of symptoms was October 03, 2021. Care prior to arrival: None. 12:54 Method Of Arrival: Wheelchair ld1 12:54 Acuity: DICK 3 ld1 Triage Assessment: 12:57 General: Appears in no apparent distress. comfortable, Behavior is calm, cooperative, ld1 appropriate for age. Pain: Complains of pain in right lateral anterior chest and right arm Pain does not radiate. Pain currently is 10 out of 10 on a pain scale. Quality of pain is described as stabbing, throbbing. EENT: No signs and/or symptoms were reported regarding the EENT system. Neuro: Level of Consciousness is awake, alert, obeys commands, Oriented to person, place, time, situation. Cardiovascular: Capillary refill < 3 seconds Patient's skin is warm and dry. Respiratory: Airway is patent Respiratory effort is even, unlabored. GI: Abdomen is flat, non-distended. : No signs and/or symptoms were reported regarding the genitourinary system. Derm: No signs and/or symptoms reported regarding the dermatologic system. Musculoskeletal: Range of motion: limited in right shoulder and right elbow. Historical: - Allergies: 12:57 SULFUR, ELEMENTAL; ld1 12:57 NSAIDS; ld1 - PMHx: 12:57 reynauds; Lupus erythematosus; COPD; Sjogrens syndrome; Anxiety; ld1 - PSHx: 12:57 None; ld1 - Immunization history:: Adult Immunizations up to date, Client reports receiving the 2nd dose of the Covid vaccine. - Social history:: Smoking status: Patient denies any tobacco usage or history of. Patient/guardian denies using alcohol. Screenin:56 Abuse screen: Denies threats or abuse. Nutritional screening: No deficits noted. jb4 Tuberculosis screening: No symptoms or risk factors identified. Fall Risk Fall in past 12 months (25 points). Total Mcwilliams Fall Scale indicates Low Risk Score (25-44 pts). Fall prevention measures have been instituted. Side Rails Up X 2 Placed close to Nursing Station Frequent Obs/Assesments occuring Family Present and informed to notify staff if they need to leave bedside As available Patient and Family Educated on Fall Prevention Program and strategies. Assessment: 15:56 Reassessment: Patient appears in no apparent distress at this time. Patient and/or jb4 family updated on plan of care and expected duration. Pain level reassessed. Patient is alert, oriented x 3, equal unlabored respirations, skin warm/dry/pink. Vital Signs: 12:54 BP 125 / 76; Pulse 101; Resp 18; Temp 98.3(TE); Pulse Ox 93% on R/A; Weight 81.65 kg; ld1 Height 5 ft. 9 in. (175.26 cm); Pain 10/10; 12:54 Body Mass Index 26.58 (81.65 kg, 175.26 cm) ld1 ED Course: 12:40 Patient arrived in ED. am2 12:40 Jed Patiño MD is Private Physician. am2 12:45 Stefany Calderon NP is PHCP. aj3 12:45 Kings Beck DO is Attending Physician. aj3 12:56 Triage completed. ld1 12:57 Arm band placed on right wrist. ld1 13:35 Ribs Bilateral W/Chest XRAY In Process Unspecified. EDMS 13:35 Humerus Right XRAY In Process Unspecified. EDMS 14:45 Jed Patiño MD is Referral Physician. aj3 14:45 Sky Lopes MD is Referral Physician. aj3 15:56 Patient has correct armband on for positive identification. jb4 15:56 No provider procedures requiring assistance completed. Patient did not have IV access jb4 during this emergency room visit. Administered Medications: 15:23 Not Given (Other Intervention Used): Hydrocodone-Acetaminophen (10 mg-500 mg) 1 tabs PO jb4 once; RASS on ADMIN: Combtv4, Very Agttd3, Agttd2, Rstlss1, AlertClm0, Drwsy-1, Lt Sdtn-2, Mod Sdtn-3, Dp Sdtn-4, UnArsble-5 15:23 Drug: HYDROcodone-acetaminophen 5 mg-325 mg 1 tabs Route: PO; jb4 15:56 Follow up: Response: No adverse reaction; Marked relief of symptoms jb4 Medication: 15:56 VIS not applicable for this client. jb4 Outcome: 14:45 Discharge ordered by MD. aj3 15:56 Discharged to home via wheelchair, with family. jb4 15:56 Condition: stable 15:56 Discharge instructions given to patient, Instructed on discharge instructions, follow up and referral plans. medication usage, Demonstrated understanding of instructions, follow-up care, medications, Prescriptions given X 3. 15:57 Patient left the ED. jb4 Signatures: Dispatcher [employer] EDMS Caleb Conrad RN RN jb4 Stefany Ott am2 Rossana Emerson RN RN ld1 Stefany Calderon, FIREBOAT OPERATOR FIREBOAT OPERATOR aj3 Corrections: (The following items were deleted from the chart) 12:59 12:57 Home Meds: sjogrens syndrome; ld1 ld1
--- NOTE | 2021-10-03 14:45 | EDPHYS ---
Physician Documentation [facility] Name: Iona Hager Age: 60 yrs Sex: Female : 1960 Arrival Date: 10/03/2021 Time: 12:40 Bed 12 Private MD: Jed Patiño ED Physician Kings Beck HPI: 10/03 13:07 This 60 yrs old Female presents to ER via Wheelchair with complaints of Fall Injury, aj3 rib pain. 13:07 Details of fall: The patient fell from an upright position, while standing. Onset: The aj3 symptoms/episode began/occurred acutely, 4 day(s) ago. Associated injuries: The patient sustained injury to the chest, specifically the right lateral posterior chest, ecchymosis, pain with movement, tenderness, right arm. Historical: - Allergies: 12:57 SULFUR, ELEMENTAL; ld1 12:57 NSAIDS; ld1 - PMHx: 12:57 reynauds; Lupus erythematosus; COPD; Sjogrens syndrome; Anxiety; ld1 - PSHx: 12:57 None; ld1 - Immunization history:: Adult Immunizations up to date, Client reports receiving the 2nd dose of the Covid vaccine. - Social history:: Smoking status: Patient denies any tobacco usage or history of. Patient/guardian denies using alcohol. ROS: 13:07 Constitutional: Negative for fever, chills, and weight loss, Neck: Negative for injury, aj3 pain, and swelling, Cardiovascular: Negative for chest pain, palpitations, and edema, Respiratory: Negative for shortness of breath, cough, wheezing, and pleuritic chest pain, Abdomen/GI: Negative for abdominal pain, nausea, vomiting, diarrhea, and constipation, Neuro: Negative for syncope, headache, weakness, numbness, tingling, and seizure. 13:07 Back: Positive for pain with movement. 13:07 MS/extremity: Positive for contusion, ecchymosis, pain. 13:07 Skin: Positive for ecchymosis. Exam: 13:07 Constitutional: This is a well developed, well nourished patient who is awake, alert, aj3 and in no acute distress. Head/Face: Normocephalic, atraumatic. Eyes: Pupils equal round and reactive to light, extra-ocular motions intact. Lids and lashes normal. Conjunctiva and sclera are non-icteric and not injected. Cornea within normal limits. Periorbital areas with no swelling, redness, or edema. Neck: Trachea midline, no thyromegaly or masses palpated, and no cervical lymphadenopathy. Supple, full range of motion without nuchal rigidity, or vertebral point tenderness. No Meningismus. Cardiovascular: Regular rate and rhythm with a normal S1 and S2. No gallops, murmurs, or rubs. Normal PMI, no JVD. No pulse deficits. Respiratory: Lungs have equal breath sounds bilaterally, clear to auscultation and percussion. No rales, rhonchi or wheezes noted. No increased work of breathing, no retractions or nasal flaring. 13:07 Chest/axilla: Inspection: ecchymosis, that is mild, of the right lateral posterior chest Palpation: tenderness, that is moderate. 13:07 Musculoskeletal/extremity: Extremities: grossly normal except: ecchymosis, pain, R upper arm. 13:07 Skin: Appearance: Temperature: normal temperature, warm, ecchymosis, noted on the, right bicep. Vital Signs: 12:54 BP 125 / 76; Pulse 101; Resp 18; Temp 98.3(TE); Pulse Ox 93% on R/A; Weight 81.65 kg; ld1 Height 5 ft. 9 in. (175.26 cm); Pain 10/10; 12:54 Body Mass Index 26.58 (81.65 kg, 175.26 cm) ld1 Procedures: 14:42 Performed Sling \T\ Swathe applied to R arm. aj3 MDM: 13:02 Patient medically screened. aj3 13:07 Data reviewed: vital signs, nurses notes. aj3 14:41 Data reviewed: radiologic studies, plain films. Counseling: I had a detailed discussion aj3 with the patient and/or guardian regarding: the historical points, exam findings, and any diagnostic results supporting the discharge/admit diagnosis, radiology results, the need for outpatient follow up, to return to the emergency department if symptoms worsen or persist or if there are any questions or concerns that arise at home. ED course: ED work-up notable for proximal humerus fracture in the right arm. Rib x-rays negative for any fracture. Patient placed in sling + swathe and given Ortho referral. Discharge instructions, medications prescribed and ER return precautions discussed with patient and family.. 14:42 Differential diagnosis: contusion, fracture, Dislocation, pneumothorax. aj3 10/03 13:06 Order name: Ribs Bilateral W/Chest XRAY; Complete Time: 14:28 aj3 10/03 13:06 Order name: Humerus Right XRAY; Complete Time: 14:28 aj3 10/03 14:32 Order name: Sling: Sling and Swathe please; Complete Time: 15:56 aj3 Administered Medications: 15:23 Not Given (Other Intervention Used): Hydrocodone-Acetaminophen (10 mg-500 mg) 1 tabs PO jb4 once; RASS on ADMIN: Combtv4, Very Agttd3, Agttd2, Rstlss1, AlertClm0, Drwsy-1, Lt Sdtn-2, Mod Sdtn-3, Dp Sdtn-4, UnArsble-5 15:23 Drug: HYDROcodone-acetaminophen 5 mg-325 mg 1 tabs Route: PO; jb4 15:56 Follow up: Response: No adverse reaction; Marked relief of symptoms jb4 Disposition: 22:13 Co-signature as Attending Physician, Kings HOLLAND was immediately available on-site ms3 in the Emergency Department for consultation in the care of the patient. . Disposition Summary: 10/03/21 14:45 Discharge Ordered Location: Home aj3 Problem: new aj3 Symptoms: are unchanged aj3 Condition: Stable aj3 Diagnosis - Contusion of right ribs aj3 - Contusion of right upper arm aj3 - Fall on same level, unspecified aj3 - Fracture of upper end of humerus aj3 Followup: aj3 - With: - When: 2 - 3 days - Reason: Re-evaluation by your physician Followup: aj3 - With: - When: 1 week - Reason: Recheck today's complaints Discharge Instructions: - Discharge Summary Sheet aj3 - Rib Contusion aj3 - Humerus Fracture Treated With Immobilization aj3 Forms: - Medication Reconciliation Form aj3 - Thank You Letter aj3 - Antibiotic Education aj3 - Prescription Opioid Use aj3 Prescriptions: - Tylenol-Codeine #3 300 mg-30 mg Oral - take 1 tablet by ORAL route every 4-6 hours As needed; 18 tablet; Refills: 0, aj3 Product Selection Permitted - prednisone 10 mg Oral tablet - take 1 tablet by ORAL route once daily in the morning; 14 tablet; Refills: 0, aj3 Product Selection Permitted - Baclofen 10 mg Oral Tablet - take 1 tablet by ORAL route 3 times per day As needed; 20 tablet; Refills: 0, aj3 Product Selection Permitted Signatures: Dispatcher [employer] EDCaleb Blue RN RN jb4 Kings Beck DO DO ms3 Rossana Emerson RN RN ld1 Stefany Calderon NP SEGMENT BLOCK LAYER aj3 Corrections: (The following items were deleted from the chart) 12:59 12:57 Home Meds: sjogrens syndrome; ld1 ld1
[2021-10-03] MEDS ORDERED: HYDROCODONE/APAP 10/325 TAB ONE (15:23)
[2021-10-03] MEDS ORDERED: HYDROCODONE/APAP 5/325 MG TAB ONE (15:27)
[2021-10-03 16:06] VITALS: BP 125/76; TEMP 98.3; O2SAT 93
== END 2021-10-03 15:57 | disposition home or self-care (01) ==
LOC: ER 12:38
DX: S52.101A Unspecified fracture of upper end of right radius, initial encounter for closed fracture (principal); S20.211A Contusion of right front wall of thorax, initial encounter; S40.021A Contusion of right upper arm, initial encounter; W18.30XA Fall on same level, unspecified, initial encounter; Z88.6 Allergy status to analgesic agent; Z88.8 Allergy status to other drugs, medicaments and biological substances
CPT/HCPCS: 71111; 99283